=== PATIENT | female | born 1955 | race Caucasian/White ===

== ENCOUNTER 2020-08-23 18:22 | Inpatient (IN) ==
[2020-08-23] MEDS ORDERED: NS 0.9% 1000 ml BAG 1,000 ML IV ONE ×2 (18:29→19:31)
[2020-08-23] MEDS ORDERED: cefTRIAXone 1 gm/50 mL NS BAG 1 GM/50 ML BAG IV ONE (18:32)
[2020-08-23 19:26] LABS: ABS Lymphocytes 0.3 10^3/ul (1.0-4.8); ABS Monocytes 0.2 10^3/ul (0-0.8); ABS Neutrophils 7.4 10^3/ul (1.5-7.7); Eosinophil % 0.1 %; Hematocrit 42 % (35-47); Hemoglobin 14.6 g/dL (12.0-16.0); Lymphocyte % 3.3 %; Mean Corpuscular HGB Conc 35 g/dL (31-36); Mean Corpuscular Hemoglobin 32 pg (27-31); Mean Corpuscular Volume 91 fL (80-97); Mean Platelet Volume 8.5 fL (7.4-10.4); Platelet Count 156 10^3/uL (150-450); Red Blood Count 4.56 10^6 /uL (3.70-4.87); Red Cell Distribution Width 13 % (10-15); White Blood Count 7.8 10^3/uL (3.5-10.8)
[2020-08-23 19:29] LABS: Urine Appearance Cloudy; Urine Bilirubin Negative (Negative); Urine Blood Negative (Negative); Urine Color Amber; Urine Glucose Negative (Negative); Urine Ketones 1+ (Negative); Urine Nitrite Negative (Negative); Urine Protein Negative (Negative); Urine Specific Gravity 1.018 (1.010-1.030); Urine Urobilinogen Positive (Negative)
[2020-08-23 19:31] LABS: Urine Bacteria 1+ (Absent); Urine Red Blood Cell 2+(6-10/hpf) (Absent); Urine Squamous Epithelial Cell Present (Absent); Urine White Blood Cell 3+(>20/hpf) (Absent)
[2020-08-23 19:36] LABS: Activated Partial Thrombo Time 30.2 seconds (26.0-38.0); INR 1.07 (0.82-1.09)
[2020-08-23 19:42] LABS: Albumin 3.9 g/dL (3.2-5.2); Albumin/Globulin Ratio 1.4 (1-3); BUN/Creatinine Ratio 17.4 (8-20); C Reactive Protein 44.97 mg/L (<8.01); Calcium 9.2 mg/dL (8.6-10.3); EGFR African American 48.6 (>60); EGFR Non-African American 40.1 (>60); Globulin 2.7 g/dL (2-4); Potassium 3.8 mmol/L (3.5-5.0); Total Bilirubin 0.9 mg/dL (0.2-1.0); Total Protein 6.6 g/dL (6.4-8.9)
[2020-08-23 20:14] LABS: Troponin I 0.01 ng/mL (<0.03)
[2020-08-23] MEDS ORDERED: Lactated Ringers 1000 ml BAG 1,000 ML IV SCH (23:00)
[2020-08-24 00:48] LABS: Hepatitis C Antibody Negative (Negative)
[2020-08-24] MEDS: Enoxaparin 40 MG/0.4 ML SYR SUBCUT SCH ×2 (00:52→21:05)
[2020-08-24] MEDS: Lactated Ringers 1000 ml BAG 1,000 ML IV SCH ×2 (02:41→06:20)
[2020-08-24 06:20] LABS: ABS Lymphocytes 0.2 10^3/ul (1.0-4.8); ABS Monocytes 0.1 10^3/ul (0-0.8); ABS Neutrophils 7.6 10^3/ul (1.5-7.7); Eosinophil % 0.4 %; Hematocrit 37 % (35-47); Hemoglobin 12.9 g/dL (12.0-16.0); Lymphocyte % 2.9 %; Mean Corpuscular HGB Conc 35 g/dL (31-36); Mean Corpuscular Hemoglobin 32 pg (27-31); Mean Corpuscular Volume 93 fL (80-97); Platelet Count 105 10^3/uL (150-450); Red Cell Distribution Width 13 % (10-15)
[2020-08-24 06:36] LABS: BUN/Creatinine Ratio 17.6 (8-20); Calcium 8.4 mg/dL (8.6-10.3); EGFR African American 54.7 (>60); EGFR Non-African American 45.2 (>60); Potassium 3.5 mmol/L (3.5-5.0)
[2020-08-24] MEDS: Cholecalciferol (VIT D3) 1,000 unit TAB PO SCH (09:00)
[2020-08-24] MEDS: ASCORBIC ACID 100 MG PO SCH (09:01)
[2020-08-24] MEDS ORDERED: cefTRIAXone 1 gm/50 mL NS BAG 1 GM/50 ML BAG IVPB ONE (11:00)
[2020-08-24] MEDS ORDERED: cefTRIAXone 2 GM ADDV.VIAL 2 GM in NS 0.9% 100 ml BAG 100 ML IV SCH (18:30)
[2020-08-25 07:04] LABS: BUN/Creatinine Ratio 16.9 (8-20); Calcium 8.8 mg/dL (8.6-10.3); EGFR African American 76.5 (>60); EGFR Non-African American 63.3 (>60); Potassium 3.5 mmol/L (3.5-5.0)
[2020-08-25] MEDS: ASCORBIC ACID 100 MG PO SCH (08:07)
[2020-08-25] MEDS: Cholecalciferol (VIT D3) 1,000 unit TAB PO SCH (08:09)
[2020-08-25] MEDS ORDERED: cefTRIAXone 2 GM ADDV.VIAL 1 GM in NS 0.9% 100 ml BAG 100 ML IV SCH (09:00)
[2020-08-25 13:06] VITALS: BP 130/72
== END 2020-08-25 13:35 | disposition home or self-care (01) | DRG 872 ==
LOC: ED 18:22 → MED 22:50
PROVIDERS: ADMIT Internal Medicine; ATTEND Internal Medicine

== ENCOUNTER 2021-09-10 22:27 | Inpatient (IN) ==
[2021-09-10 23:42] LABS: ABS Basophils 0.1 10^3/ul (0-0.2); ABS Eosinophils 0.1 10^3/ul (0-0.6); ABS Lymphocytes 2.7 10^3/ul (1.0-4.8); ABS Monocytes 0.6 10^3/ul (0-0.8); ABS Neutrophils 5.9 10^3/ul (1.5-7.7); Eosinophil % 1.3 %; Hematocrit 42 % (35-47); Hemoglobin 14.4 g/dL (12.0-16.0); Lymphocyte % 28.1 %; Mean Corpuscular HGB Conc 34 g/dL (31-36); Mean Corpuscular Hemoglobin 32 pg (27-31); Mean Corpuscular Volume 94 fL (80-97); Mean Platelet Volume 7.7 fL (7.4-10.4); Nucleated Red Blood Cells % 0.1; Platelet Count 269 10^3/uL (150-450); Red Blood Count 4.51 10^6 /uL (3.70-4.87); Red Cell Distribution Width 14 % (10-15); White Blood Count 9.5 10^3/uL (3.5-10.8)
[2021-09-11 00:16] LABS: Albumin 3.8 g/dL (3.2-5.2); Albumin/Globulin Ratio 1.8 (1-3); C Reactive Protein 1.03 mg/L (<8.01); Calcium 9.1 mg/dL (8.6-10.3); Globulin 2.1 g/dL (2-4); Magnesium 1.9 mg/dL (1.9-2.7); Potassium 4.2 mmol/L (3.5-5.0); Total Bilirubin 0.5 mg/dL (0.2-1.0); Total Protein 5.9 g/dL (6.4-8.9)
[2021-09-11 01:01] LABS: Hepatitis C Antibody Negative (Negative)
[2021-09-11] MEDS ORDERED: Ondansetron 4 mg VIAL 2 MG/ML 2 ml VIAL IV PRN (01:16)
[2021-09-11] MEDS ORDERED: Magnesium Hydroxide LIQ 30 ML UDC PO PRN (01:16)
[2021-09-11] MEDS ORDERED: Magnesium Sulfate IV 1GM/100ML 1 GM/100 ML BAG IV ONE (01:20)
[2021-09-11 01:33] LABS: High Sensitivity Troponin 1 Hr 7 pg/mL (<15)
[2021-09-11 02:06] LABS: INR 0.97 (0.86-1.15)
[2021-09-11 02:08] LABS: TSH Ultra Thyroid Stim Horm 1.38 mcIU/mL (0.34-5.60)
[2021-09-11 02:47] LABS: Urine Appearance Cloudy; Urine Bilirubin Negative (Negative); Urine Blood Negative (Negative); Urine Color Yellow; Urine Glucose Negative (Negative); Urine Ketones Negative (Negative); Urine Nitrite Positive (Negative); Urine Protein Negative (Negative); Urine Specific Gravity 1.019 (1.002-1.030); Urine Urobilinogen Negative (Negative)
[2021-09-11 02:49] LABS: Vitamin D Total 25(OH) 51.3 ng/mL (20-50)
[2021-09-11 02:49] LABS: Urine Bacteria 3+ (Absent); Urine Red Blood Cell Trace(0-2/hpf) (Absent); Urine Squamous Epithelial Cell Present (Absent); Urine White Blood Cell 2+(11-20/hpf) (Absent)
[2021-09-11] MEDS: Lactated Ringers 1000 ml BAG 1,000 ML IV SCH ×2 (04:01→19:32)
[2021-09-11] MEDS: levETIRAcetam IV 750 MG in NS 0.9% 100 ml BAG 100 ML IVPB SCH ×2 (05:02→17:28)
[2021-09-11 05:23] LABS: Calcium 9.8 mg/dL (8.6-10.3); Magnesium 2.5 mg/dL (1.9-2.7); Potassium 4.2 mmol/L (3.5-5.0)
[2021-09-11 08:32] LABS: Urine Appearance Cloudy; Urine Bilirubin Negative (Negative); Urine Blood Negative (Negative); Urine Color Yellow; Urine Glucose Negative (Negative); Urine Ketones Negative (Negative); Urine Nitrite Positive (Negative); Urine Protein Negative (Negative); Urine Specific Gravity 1.021 (1.002-1.030); Urine Urobilinogen Negative (Negative)
[2021-09-11 08:39] LABS: Urine Bacteria 3+ (Absent); Urine Red Blood Cell Trace(0-2/hpf) (Absent); Urine Squamous Epithelial Cell Present (Absent); Urine White Blood Cell 1+(6-10/hpf) (Absent)
[2021-09-11] MEDS: Cholecalciferol (VIT D3) 1,000 unit TAB PO SCH (10:23)
[2021-09-11] MEDS ORDERED: Gadoteridol (CONTRAST) 279.3 MG/ML 10 ML IV ONE (14:34)
[2021-09-11] MEDS ORDERED: Senna TAB 8.6 mg TAB PO PRN (17:27)
[2021-09-11] MEDS ORDERED: Dexamethasone IV 4 MG in NS 0.9% 50 ML 50 ML IVPB SCH (18:00)
[2021-09-11] MEDS: Dexamethasone IV 4 MG/ML VIAL 1 ml VIAL IV SLOW PU SCH ×2 (19:08→23:54)
[2021-09-12 04:09] LABS: Hematocrit 37 % (35-47); Mean Corpuscular HGB Conc 35 g/dL (31-36); Mean Corpuscular Hemoglobin 33 pg (27-31); Mean Corpuscular Volume 94 fL (80-97); Platelet Count 220 10^3/uL (150-450); Red Blood Count 3.97 10^6 /uL (3.70-4.87); Red Cell Distribution Width 14 % (10-15); White Blood Count 5.6 10^3/uL (3.5-10.8)
[2021-09-12] MEDS: levETIRAcetam IV 750 MG in NS 0.9% 100 ml BAG 100 ML IVPB SCH ×2 (04:09→17:51)
[2021-09-12 04:43] LABS: Calcium 9.1 mg/dL (8.6-10.3); Magnesium 1.8 mg/dL (1.9-2.7); Potassium 4.6 mmol/L (3.5-5.0); eGFR CKD-EPI 54.7 (>60)
[2021-09-12] MEDS: Dexamethasone IV 4 MG/ML VIAL 1 ml VIAL IV SLOW PU SCH ×3 (06:12→17:50)
[2021-09-12] MEDS ORDERED: Magnesium Sulfate 2 gm BAG 2 GM/50 ML BAG IVPB ONE (07:13)
[2021-09-12] MEDS: Cholecalciferol (VIT D3) 1,000 unit TAB PO SCH (08:33)
[2021-09-12] MEDS: Lactated Ringers 1000 ml BAG 1,000 ML IV SCH (08:36)
[2021-09-12 21:29] LABS: Calcium 9.3 mg/dL (8.6-10.3); Magnesium 2.3 mg/dL (1.9-2.7); Potassium 4.2 mmol/L (3.5-5.0); eGFR CKD-EPI 62.1 (>60)
[2021-09-13] MEDS: Dexamethasone IV 4 MG/ML VIAL 1 ml VIAL IV SLOW PU SCH ×3 (00:11→12:42)
[2021-09-13] MEDS: levETIRAcetam IV 750 MG in NS 0.9% 100 ml BAG 100 ML IVPB SCH (05:15)
[2021-09-13 06:00] LABS: Calcium 8.9 mg/dL (8.6-10.3); Magnesium 2.1 mg/dL (1.9-2.7); Potassium 4.2 mmol/L (3.5-5.0); eGFR CKD-EPI 63.6 (>60)
[2021-09-13] MEDS: Cholecalciferol (VIT D3) 1,000 unit TAB PO SCH (07:46)
[2021-09-13 17:19] VITALS: BP 111/63
== END 2021-09-13 18:15 | disposition home or self-care (01) | DRG 65 ==
LOC: ED 22:27 → EDHOLD 09-11 01:16 → ICU 09-11 03:14
PROVIDERS: ADMIT Internal Medicine; ATTEND Internal Medicine